=== PATIENT | male | born 1935 | race Hispanic/Latino ===

== ENCOUNTER 2025-04-16 16:31 | Inpatient (IN) | payer MEDICARE ==
[~2025-04-16] VITALS: Ht 157.5 cm; Wt 83.9 kg
[~2025-04-16 16:31] MED LIST: ASPIRIN81 MG PO; HYDROCHLOROTH12.5 MG; LISINOPRIL-HCT1 EACH PO; LISINOPRIL10 MG PO; LISINOPRIL20 MG; PANTOPRAZOLE SO40 MG PO; TAMSULOSIN HCL0.4 MG; TAMSULOSIN HCL0.4 MG PO
[2025-04-16] MEDS ORDERED: SODIUM CHLORIDE 0.9% 1000ML 1,000 ML IV STA (16:53)
[2025-04-16 17:21] LABS: BASOPHILS % 0.2 % (0.0-1.0); EOSINOPHILS % 0.2 % (0.0-6.0); LYMPHOCYTES % 4.7 % (18.0-39.1); MONOCYTES % 9.7 % (4.4-11.3); NEUTROPHILS % 83.4 % (38.7-80.0); RED CELL DISTRIBUTION WIDTH 13.9 % (11.7-14.4)
[2025-04-16 17:32] LABS: INR 1.19
[2025-04-16] MEDS ORDERED: ACETAMINOPHEN 325 MG TAB ONE (17:34)
[2025-04-16 17:42] LABS: CORONAVIRUS COVID-19 AG POSITIVE (NEGATIVE)
[2025-04-16 17:44] LABS: EST GLOMERULAR FILTRATION RATE 22.0 ML/MIN (>=60)
[2025-04-16 17:45] LABS: B-TYPE NATRIURETIC PEPTIDE2 81.9 pg/mL (0-100)
[2025-04-16] MEDS: ACETAMINOPHEN 325 MG TAB PO ONE (17:47)
[2025-04-16] MEDS ORDERED: IBUPROFEN 600 MG TAB PO STA (18:01)
[2025-04-16 18:32] LABS: LEUKOCYTE ESTERASE ,URINE TRACE (NEGATIVE); PROTEIN,URINE DIPSTICK 2+ (NEGATIVE); URINE UROBILINOGEN 0.2 mg/dL (0.2 - 1)
[2025-04-16 18:37] LABS: CALCIUM OXALATE CRYSTALS,UR FEW (FEW); WBC,URINE (MAN) 0-5 /HPF (0-5)
[2025-04-16] MEDS ORDERED: ACETAMINOPHEN 1000 MG/100 ML IV PRN (19:00)
[2025-04-16] MEDS ORDERED: IBUPROFEN 400 MG TAB PO PRN (19:00)
[2025-04-16] MEDS ORDERED: ONDANSETRON HCL INJ 2MG/ML 2ML 2 MG/ML VIAL IV PRN (19:00)
[2025-04-16 19:45] VITALS: PULSE 72; RESP 17; TEMP 98.6
[2025-04-16] MEDS: SODIUM CHLORIDE 0.9% 1000ML 1,000 ML IV STA (19:46)
[2025-04-16] MEDS: SODIUM CHLORIDE 0.9% 1000ML 1,000 ML IV SCH (19:48)
[2025-04-16 20:38] VITALS: BP 131/72; PULSE 65; RESP 20; TEMP 97.8; O2SAT 100
[2025-04-16 23:11] VITALS: BP 119/72; PULSE 64; RESP 20; TEMP 97.8; O2SAT 100
[2025-04-17] VITALS (11 sets, daily range): BP systolic 112–164; BP diastolic 54–88; PULSE 64–86; RESP 18–20; TEMP 97.8–100.7; O2SAT 97–100
[2025-04-17] MEDS ORDERED: PANTOPRAZOLE SO20 MG (00:25)
[2025-04-17] MEDS ORDERED: FINASTERIDE5 MG PO (00:25)
[2025-04-17] MEDS ORDERED: LOSARTAN POTAS100 MG PO (00:25)
[2025-04-17] MEDS ORDERED: AMOXICILLIN500 MG PO (00:25)
[2025-04-17] MEDS ORDERED: FLOMAX0.4 MG PO (00:25)
[2025-04-17 06:07] LABS: BASOPHILS % 0.3 % (0.0-1.0); EOSINOPHILS % 0.0 % (0.0-6.0); LYMPHOCYTES % 10.7 % (18.0-39.1); MONOCYTES % 14.9 % (4.4-11.3); NEUTROPHILS % 72.4 % (38.7-80.0); RED CELL DISTRIBUTION WIDTH 14.0 % (11.7-14.4)
[2025-04-17 06:36] LABS: EST GLOMERULAR FILTRATION RATE 26.0 ML/MIN (>=60)
[2025-04-17] MEDS ORDERED: ALBUTEROL/IPRATROPIUM 3 ML NEB NEB PRN (08:45)
[2025-04-17] MEDS ORDERED: ONDANSETRON HCL INJ 2MG/ML 2ML 2 MG/ML VIAL IV PRN (08:45)
[2025-04-17] MEDS: ASPIRIN 81 MG CHEW TAB PO SCH (09:57)
[2025-04-17] MEDS: FINASTERIDE 5 MG TAB PO SCH (09:57)
[2025-04-17] MEDS: ALBUTEROL/IPRATROPIUM 3 ML NEB NEB SCH (12:57)
[2025-04-17] MEDS: TAMSULOSIN HCL 0.4 MG CAP PO SCH (16:51)
[2025-04-17] MEDS: ACETAMINOPHEN 325 MG TAB PO PRN (16:52)
[2025-04-18] VITALS (11 sets, daily range): BP systolic 112–142; BP diastolic 54–86; PULSE 61–88; RESP 16–20; TEMP 98.1–98.8; O2SAT 94–100
[2025-04-18 05:56] LABS: BASOPHILS % 0.4 % (0.0-1.0); EOSINOPHILS % 0.0 % (0.0-6.0); LYMPHOCYTES % 15.0 % (18.0-39.1); MONOCYTES % 15.5 % (4.4-11.3); NEUTROPHILS % 43.3 % (38.7-80.0); RED CELL DISTRIBUTION WIDTH 14.2 % (11.7-14.4)
[2025-04-18] MEDS: PANTOPRAZOLE SOD 40 MG TABEC PO SCH (06:00)
[2025-04-18 06:38] LABS: EST GLOMERULAR FILTRATION RATE 29.0 ML/MIN (>=60)
[2025-04-18] MEDS: TRAZODONE HCL 50 MG TAB PO SCH (22:52)
[2025-04-19] VITALS: BP 141/65; PULSE 72; RESP 18; TEMP 98.1; O2SAT 97
[2025-04-19 01:16] VITALS: PULSE 76; RESP 18; O2SAT 99
[2025-04-19 06:26] VITALS: BP 146/86; PULSE 88; RESP 20; TEMP 97.9; O2SAT 99
[2025-04-19 08:00] VITALS: BP 150/81; PULSE 77; RESP 20; TEMP 97.6; O2SAT 99
[2025-04-19 08:01] VITALS: PULSE 74; RESP 18; O2SAT 98
[2025-04-19 08:19] VITALS: BP 150/81; PULSE 77; RESP 20; TEMP 97.6; O2SAT 99
[2025-04-19] MEDS ORDERED: TRAZODONE HCL 50 MG TAB PO SCH (21:00)
== END 2025-04-19 11:00 | disposition home or self-care (01) | DRG 177 ==
LOC: ER 16:54 → ERHOLD 18:53 → MED/SURG3 20:36
PROVIDERS: ADMIT Internal Medicine; ATTEND Internal Medicine
DX: U07.1 COVID-19 (principal); J12.82 Pneumonia due to coronavirus disease 2019; N17.9 Acute kidney failure, unspecified; N39.0 Urinary tract infection, site not specified; I12.9 Hypertensive chronic kidney disease with stage 1 through stage 4 chronic kidney disease, or unspecified chronic kidney disease; E86.0 Dehydration; K21.9 Gastro-esophageal reflux disease without esophagitis; N40.0 Benign prostatic hyperplasia without lower urinary tract symptoms; N18.9 Chronic kidney disease, unspecified; I95.9 Hypotension, unspecified
CPT/HCPCS: 36415; 71045; 71250; 80048; 80053; 81001; 82550; 82948; 83605; 83735; 83880; 84484; 85025; 85610; 85730; 87040; 87086; 93005; 94799; 99284; J0696; J2470; J7030; J7050